=== PATIENT | male | born 1990 | race Caucasian/White ===

== ENCOUNTER 2016-07-03 07:45 | Emergency (ER) | payer SELFPAY ==
[2016-07-03 08:45] LABS: ABSOLUTE EOSINOPHILS # (AUTO) 0.3 10^3/uL (0.0-0.6); ABSOLUTE LYMPHOCYTES (AUTO) 1.7 10^3/uL (0.5-4.7); ABSOLUTE MONOCYTES (AUTO) 0.5 10^3/uL (0.1-1.4); ABSOLUTE NEUT (AUTO) 4.9 10^3/uL (1.7-8.2); BASOPHILS % (AUTO) 0.4 % (0-2); EOSINOPHILS % (AUTO) 3.5 % (0-6); HEMATOCRIT 45.9 % (37.9-51.0); HEMOGLOBIN 15.9 g/dL (13.5-17.0); HGB HCT DIFFERENCE 1.8; LYMPHOCYTES % (AUTO) 23.2 % (13-45); MEAN CORPUSCULAR HEMOGLOBIN 29.4 pg (27.0-33.4); MEAN CORPUSCULAR HGB CONC 34.6 g/dL (32.0-36.0); MEAN CORPUSCULAR VOLUME 85 fl (80-97); RED CELL DISTRIBUTION WIDTH 12.8 % (11.5-14.0); SEGMENTED NEUTROPHILS % (AUTO) 65.9 % (42-78); WHITE BLOOD COUNT 7.4 10^3/uL (4.0-10.5)
[2016-07-03 09:03] LABS: ALANINE AMINOTRANSFERASE 28 U/L (21-72); ALBUMIN 4.5 g/dL (3.5-5.0); ALKALINE PHOSPHATASE 98 U/L (38-126); ANION GAP 11 (5-19); ASPARTATE AMINO TRANSFERASE 22 U/L (17-59); BILIRUBIN,TOTAL 0.8 mg/dL (0.2-1.3); BLOOD UREA NITROGEN 14 mg/dL (7-20); CALCIUM 9.8 mg/dL (8.4-10.2); CARBON DIOXIDE 27 mmol/L (22-30); CHLORIDE 104 mmol/L (98-107); GLUCOSE 92 mg/dL (75-110); LIPASE 325.6 U/L (23-300); POTASSIUM 4.8 mmol/L (3.6-5.0); SODIUM 141.5 mmol/L (137-145); TOTAL PROTEIN 7.4 g/dL (6.3-8.2)
[2016-07-03 09:16] LABS: APPEARANCE,URINE CLEAR; BILIRUBIN,URINE NEGATIVE (NEGATIVE); GLUCOSE, URINE NEGATIVE (NEGATIVE); KETONES,URINE NEGATIVE (NEGATIVE); LEUKOCYTE ESTERASE,URINE NEGATIVE (NEGATIVE); NITRITE,URINE NEGATIVE (NEGATIVE); PROTEIN,URINE NEGATIVE (NEGATIVE); URINE SPECIFIC GRAVITY 1.018; UROBILINOGEN,URINE NEGATIVE mg/dL (<2.0)
[2016-07-03 09:33] LABS: URINE BARBITURATES SCREEN UNCONFIRMED POSITIVE; URINE METHADONE SCREEN NEGATIVE; URINE OPIATES LOW NEGATIVE; URINE PHENCYCLIDINE SCREEN NEGATIVE
--- NOTE | 2016-07-03 10:08 | ER Document Report ---
ED General - General Chief Complaint: Abdominal Pain Stated Complaint: CHEST PAIN TRAVEL OUTSIDE OF THE [place] IN LAST 30 DAYS: No - HPI Patient complains to provider of: chest pain epigastric abdominal pain Notes: Patient coming in complaining of chest wall pain in the gastric pain ongoing for the last few days. Patient states approximately a week ago to have fevers chills states that this resolved has been taking Motrin now is having more epigastric pain in chest wall tenderness. Denies any recent travel denies any fevers chills nausea vomiting diarrhea at this time. Denies any shortness of breath. - Related Data Allergies/Adverse Reactions: No Known Allergies Allergy (Unverified 07/03/16 07:56) Past Medical History - Social History Smoking Status: Never Smoker Chew tobacco use (# tins/day): No Frequency of alcohol use: Social Drug Abuse: None Family History: Reviewed & Not Pertinent Patient has suicidal ideation: No Patient has homicidal ideation: No Renal/ Medical History: Denies: Hx Peritoneal Dialysis - Immunizations Hx Diphtheria, Pertussis, Tetanus Vaccination: Yes Review of Systems - Review of Systems Constitutional: No symptoms reported EENT: No symptoms reported Cardiovascular: Chest pain Respiratory: No symptoms reported Gastrointestinal: Abdominal pain Genitourinary: No symptoms reported Male Genitourinary: No symptoms reported Musculoskeletal: No symptoms reported Skin: No symptoms reported Hematologic/Lymphatic: No symptoms reported Neurological/Psychological: No symptoms reported -: Yes All other systems reviewed and negative Physical Exam - Vital signs Vitals: Temp Pulse Resp BP Pulse Ox 97.7 F 55 L 16 155/97 H 97 07/03/16 07:50 07/03/16 07:50 07/03/16 07:50 07/03/16 07:50 07/03/16 07:50 Interpretation: Normal - General General appearance: Appears well, Alert - HEENT Head: Normocephalic, Atraumatic Eyes: Normal Pupils: PERRL - Respiratory Respiratory status: No respiratory distress Chest status: Nontender Breath sounds: Normal Chest palpation: Normal - Cardiovascular Rhythm: Regular Heart sounds: Normal auscultation Murmur: No - Abdominal Inspection: Normal Distension: No distension Bowel sounds: Normal Tenderness: Tender - Tenderness to epigastric region Organomegaly: No organomegaly - Back Back: Normal, Nontender - Extremities General upper extremity: Normal inspection, Nontender, Normal color, Normal ROM , Normal temperature General lower extremity: Normal inspection, Nontender, Normal color, Normal ROM , Normal temperature, Normal weight bearing. No: Emili's sign - Neurological Neuro grossly intact: Yes Cognition: Normal Orientation: AAOx4 Mason Coma Scale Eye Opening: Spontaneous Mason Coma Scale Verbal: Oriented [place] Coma Scale Motor: Obeys Commands Mason Coma Scale Total: 15 Speech: Normal Motor strength normal: LUE, RUE, LLE, RLE Sensory: Normal - Psychological Associated symptoms: Normal affect, Normal mood - Skin Skin Temperature: Warm Skin Moisture: Dry Skin Color: Normal Course - Re-evaluation Re-evalutation: 07/03/16 15:13 Patient has a very slight elevation in his lipase more likely related to gastritis. Patient will be treated for gastritis encouraged patient to eat food with his anti-inflammatories. Patient will be discharged home - Vital Signs Vital signs: Temp Pulse Resp BP Pulse Ox 98.0 F 55 L 16 150/95 H 100 07/03/16 10:34 07/03/16 10:34 07/03/16 10:34 07/03/16 10:34 07/03/16 10:34 - Laboratory Result Diagrams: 07/03/16 08:37 07/03/16 08:37 Laboratory results interpreted by me: 07/03/16 08:37 Lipase 325.6 H Discharge - Discharge Clinical Impression: Epigastric abdominal pain Condition: Good Disposition: HOME, SELF-CARE Instructions: Abdominal Pain ([facility]), Chest Wall Pain ([facility]), Gastritis ([facility]) Additional Instructions: Your chest x-ray and laboratory studies showed no signs of acute pathology causing her pain. Is possibility that your expressing chest wall pain or costochondritis. He may also be experiencing gastritis. Please take medication as prescribed. Return to the ER symptoms worsen please follow-up with your primary care physician. I would continue with her anti-inflammatory medications as directed by your physician Prescriptions: Famotidine [Pepcid 20 mg Tablet] 20 mg PO BID #30 tablet Metoclopramide HCl [Reglan] 5 mg PO Q6 #30 tablet Sucralfate [Carafate 1 gm Tablet] 1 gm PO ACHS #120 tablet Forms: Parent Work Note, Return to Work
[2016-07-03 10:35] VITALS: BP 150/95
--- NOTE | 2016-07-04 08:18 | EKG REPORT ---
SEVERITY:- ABNORMAL ECG - SINUS RHYTHM NONSPECIFIC INTRAVENTRICULAR CONDUCTION DELAY : Confirmed by: Shelby Morrison MD 04-Jul-2016 08:17:17
== END 2016-07-03 10:35 | disposition home or self-care (01) ==
LOC: ER 07:45
DX: R10.13 Epigastric pain (principal); R07.9 Chest pain, unspecified
CPT/HCPCS: 36415; 71020; 80053; 80307; 81001; 83690; 85025; 93005; 93010; 99284

== ENCOUNTER 2017-10-05 21:54 | Emergency (ER) | payer OTHER ==
[2017-10-05 22:19] VITALS: BP 136/86
[2017-10-05] MEDS ORDERED: HYDROCODONE/ACETAMINOPHEN 5-325 MG (6 TAB/ER DISP) PO PRN (23:56)
[2017-10-06] MEDS ORDERED: IBUPROFEN 600 MG TABLET PO ONE (00:11)
--- NOTE | 2017-10-06 00:13 | ER Document Report ---
ED ENT - General Chief Complaint: Ear Pain Stated Complaint: EAR PAIN Time Seen by Provider: 10/05/17 23:43 Mode of Arrival: Ambulatory Information source: Patient TRAVEL OUTSIDE OF THE [place] IN LAST 30 DAYS: No - HPI Patient complains to provider of: Ear problem Notes: Patient states that he was jumping into a pool earlier today when his left ear smacked the water. He had sudden pain in the left ear. He denies any drainage from the ear. He does complain of some muffled hearing from that ear. No fever. No nausea, vomiting, diarrhea. Pain is worse with sneezing, blowing his nose, coughing. No sore throat. No blurred or loss vision. No unilateral numbness, tingling, weakness. No other complaints, no other injuries. - Related Data Allergies/Adverse Reactions: No Known Allergies Allergy (Unverified 07/03/16 07:56) Past Medical History - Social History Smoking Status: Unknown if Ever Smoked Family History: Reviewed & Not Pertinent Patient has suicidal ideation: No Patient has homicidal ideation: No Renal/ Medical History: Denies: Hx Peritoneal Dialysis - Immunizations Hx Diphtheria, Pertussis, Tetanus Vaccination: Yes Review of Systems - Review of Systems -: Yes All other systems reviewed and negative Physical Exam - Vital signs Vitals: Temp Pulse Resp BP Pulse Ox 98.0 F 52 L 14 136/86 H 99 10/05/17 22:18 10/05/17 22:18 10/05/17 22:18 10/05/17 22:18 10/05/17 22:18 - Notes Notes: GENERAL: alert, cooperative, nontoxic, no distress. HEAD: normocephalic, atraumatic EYES: conjunctiva pink without discharge, no external redness or swelling. EARS: no external swelling, no external redness, no mastoid redness, swelling, tenderness. Ear canals are clear without swelling or drainage. Right canal and TM unremarkable. Left canal slightly erythematous. Left TM is erythematous with what appears to be a very small perforation. No drainage. NOSE: atraumatic, no external swelling. MOUTH/THROAT: mucous membranes moist and pink, posterior pharynx without erythema, swelling, exudate. No trismus or drooling. NECK: soft, supple, full range of motion, no meningismus. CHEST: no distress, lungs clear and equal throughout. No wheezing, rales, rhonchi. CARDIAC: regular rate and rhythm, no murmur, normal capillary refill, normal pulses. No peripheral edema noted. BACK: full range of motion, no CVA tenderness. EXTREMITIES: full range of motion of all extremities. No redness, no swelling. NEURO: alert and oriented A&O3, no focal deficits, full range of motion of all extremities. PYSCH: appropriate mood, affect. Patient is cooperative. SKIN: pink, warm, dry, no rash. Course - Re-evaluation Re-evalutation: 10/06/17 00:10 Patient is nontoxic appearing with stable vitals. The patient is here with complaints of left ear pain after jumping into a pool and smacking his left ear on the water. On exam his left TM is slightly reddened and appears to have a small perforation. There is no drainage. The patient will be discharged home with a [employer] dispense pack a prescription for Floxin eardrops and referral to ENT. He is instructed to follow-up with ENT at the next available appointment. Follow-up sooner for worsening pain, fever, drainage, numbness, tingling, weakness, any further concerns. The patient is noted to have elevated blood pressure during today's emergency department visit. The patient was informed of this finding. The patient was instructed that this may be related to pre-hypertension and requires further evaluation with a primary care provider. The patient has no hypertensive symptoms at this time. The patient's emergency department workup and current diagnosis were explained to the patient and or family. Follow-up instructions were provided. Medications if prescribed were discussed. Instructions for when to return to the emergency department including specific worrisome symptoms were discussed with the patient and/or family. - Vital Signs Vital signs: Temp Pulse Resp BP Pulse Ox 98.0 F 52 L 14 136/86 H 99 10/05/17 22:18 10/05/17 22:18 10/05/17 22:18 10/05/17 22:18 10/05/17 22:18 Discharge - Discharge Clinical Impression: Tympanic membrane perforation Qualifiers: Laterality: left Qualified Code(s): H72.92 - Unspecified perforation of tympanic membrane, left ear Condition: Stable Disposition: HOME, SELF-CARE Instructions: Perforated Eardrum ([facility]) Additional Instructions: Take medication as prescribed. You may also take Motrin as needed for pain. Follow-up with ENT at the next available appointment, sooner for worsening pain , fever, drainage, numbness, tingling, weakness, any further concerns. Your blood pressure was elevated during today's visit. Have this rechecked with your doctor. Prescriptions: Ofloxacin [Floxin] 10 drop OT DAILY #1 bot Ofloxacin [Floxin] 5 drop OT DAILY #1 bot Forms: Elevated Blood Pressure, Smoking Cessation Education Referrals: HAKAN ECHEVARRIA DO [ASSOCIATE] - Follow up as needed
== END 2017-10-06 00:25 | disposition home or self-care (01) ==
LOC: ER 21:54
DX: H72.92 Unspecified perforation of tympanic membrane, left ear (principal)
CPT/HCPCS: 99282

== ENCOUNTER 2019-10-04 18:18 | Emergency (ER) | payer OTHER ==
--- NOTE | 2019-10-04 18:27 | ER Document Report ---
HPI - HPI Patient complains to provider of: RIGHT ANKLE PAIN Time Seen by Provider: 10/04/19 18:20 Onset: Just prior to arrival Onset/Duration: Sudden Quality of pain: Achy Context: 29-year-old male presents with right ankle pain. Reports he was playing basketball and came down wrong, rolled his ankle. Denies past medical history of injury to the ankle. Right lateral ankle is swollen. Patient reports he has not walked on the ankle because it hurts. Flexes and extends his foot without problems. No other complaints such as fever vomiting diarrhea. Associated Symptoms: None Exacerbated by: Walking Relieved by: Denies Similar symptoms previously: No Recently seen / treated by doctor: No Past Medical History - General Information source: Patient - Social History Smoking Status: Unknown if Ever Smoked Cigarette use (# per day): No Frequency of alcohol use: None Drug Abuse: None Family History: Reviewed & Not Pertinent Patient has suicidal ideation: No Patient has homicidal ideation: No - Medical History Medical History: Negative Renal/ Medical History: Denies: Hx Peritoneal Dialysis Surgical Hx: Negative - Immunizations Hx Diphtheria, Pertussis, Tetanus Vaccination: Yes Vertical Provider Document - CONSTITUTIONAL Agree With Documented VS: Yes Exam Limitations: No Limitations General Appearance: WD/WN, No Apparent Distress - INFECTION CONTROL TRAVEL OUTSIDE OF THE [place] IN LAST 30 DAYS: No - HEENT HEENT: Atraumatic, Normocephalic - NECK Neck: Supple - RESPIRATORY Respiratory: No Respiratory Distress - CARDIOVASCULAR Cardiovascular: Regular Rate - MUSCULOSKELETAL/EXTREMETIES Musculoskeletal/Extremeties: MAEW, FROM, Tender - Right ankle tender to palpate laterally with swelling pedal pulse +3 cap refill less than 2 seconds Course - Re-evaluation Re-evalutation: 10/04/19 18:52 Old male presents with right ankle pain after he was playing basketball and came down wrong on it. Reports hurts to walk now. Denies past medical history of injury to the ankle. Ankle X-Ray 10/04/19 18:23 IMPRESSION: Soft tissue swelling. No fracture. 10/04/19 19:03 Patient instructed on negative fracture per radiology. Patient was instructed on the importance of monitoring his pain and symptoms and to follow-up with orthopedics if for recheck within 1 week. He was instructed take Motrin as indicated for the pain. Was placed in an ankle stirrup splint and given crutches. Patient verbalized understanding to all instructions. - Diagnostic Test Radiology reviewed: Image reviewed, Reports reviewed Procedures - Immobilization Right Ankle Pre-Proc Neuro Vasc Exam: Normal Immobilizer type: Ankle stirrup Performed by: PCT Post-Proc Neuro Vasc Exam: Unchanged from pre-exam Alignment checked and good: Yes Discharge - Discharge Clinical Impression: Right ankle injury Qualifiers: Encounter type: initial encounter Qualified Code(s): S99.911A - Unspecified injury of right ankle, initial encounter Condition: Stable Disposition: HOME, SELF-CARE Instructions: Ankle Stirrup Splint ([facility]), Use of Crutches ([facility]), Use of Ikeq-Fqv-Arxchus Ibuprofen ([facility]) Additional Instructions: *You have been evaluated for an ankle injury Your x-ray did not show an acute fracture *Rest/Ice/Elevate your ankle *Maintain the splint and use your crutches 3 days *Follow up with orthopedics within 1 week for recheck and for continued pain *Take the motrin as indicated for pain *Return to ED for worsening condition, changes, needs Monitor your blood pressure. Your blood pressure was elevated today. This may be because you were anxious, in pain or because you need medication. It is important to follow up with your primary care provider for full evaluation. Forms: Elevated Blood Pressure, Return to Work
[2019-10-04 18:28] VITALS: BP 135/72
--- NOTE | 2019-10-04 18:46 | RADIOLOGY REPORT (SQ) ---
EXAM DESCRIPTION: ANKLE RIGHT COMPLETE IMAGES COMPLETED DATE/TIME: 10/04/2019 6:37 pm REASON FOR STUDY: ROLLED ANKLE PAIN COMPARISON: None. NUMBER OF VIEWS: Three views. TECHNIQUE: AP, lateral, and oblique radiographic images acquired of the right ankle. LIMITATIONS: None. FINDINGS: MINERALIZATION: Normal. BONES: No acute fracture or dislocation. No worrisome bone lesions. JOINTS: No effusions. SOFT TISSUES: Soft tissue swelling more prominent anterior and lateral. OTHER: No other significant finding. IMPRESSION: Soft tissue swelling. No fracture. TECHNICAL DOCUMENTATION: JOB ID: [id number] [email or web address]- All Rights Reserved Reading location - IP/workstation name: [email or web address]
== END 2019-10-04 19:05 | disposition home or self-care (01) ==
LOC: ER 18:18
DX: S99.911A Unspecified injury of right ankle, initial encounter (principal); M25.571 Pain in right ankle and joints of right foot; X50.0XXA Overexertion from strenuous movement or load, initial encounter; Y93.67 Activity, basketball
CPT/HCPCS: 99283